=== PATIENT | male | born 1995 | race Caucasian/White ===

== ENCOUNTER 2025-02-17 22:04 | Emergency (ER) | payer OTHER, SELFPAY ==
[2025-02-17 22:11] VITALS: BP 143/89; PULSE 87; TEMP 37.1; O2SAT 96; BMI 39.1
--- NOTE | 2025-02-17 22:15 | ECG_ITS ---
[facility] Test Date: 2025-02-17 Pat Name: GOLDEN JIMÉNEZ Department: Room: - Gender: Male [employer]: : 1995 Requested By: [id number] Order Number: [id number] Reading MD: ELLIE MEDINA M.D. Measurements Intervals [place] Rate: 90 P: 41 WV: 144 QRS: 58 QRSD: 84 T: 30 QT: 350 QTc: 397 Interpretive Statements 1100 Sinus rhythm 8102 Low QRS voltage in chest leads Abnormal ECG No previous ECG available for comparison Electronically Signed On 02-18-2025 7:14:26 EDT by ELLIE MEDINA M.D.
--- NOTE | 2025-02-17 22:23 | ED.DIZZY1 ---
HPI - Dizziness General Chief Complaint: Dizziness Stated Complaint: Dizziness Time Seen by Provider: 02/17/25 22:23 Source: patient Mode of arrival: walk-in Limitations: no limitations History of Present Illness HPI Narrative: dizzy episode last week that resolved. States wisdom tooth pain at that time that has resolved. Tonight he was bending over to remove his boots and became dizzy falling forward striking his head on a mattress on the floor. No injury. Now presents to be seen. No headache. States if he turns his head there is a delay in movement of the room. No blurred vision or nausea. No focal weakness Related Data Home Medications ?Medication ?Instructions ?Recorded ?Confirmed No Known Home Medications 02/17/25 02/17/25 Allergies Allergy/AdvReac Type Severity Reaction Status Date / Time No Known Drug Allergies Allergy Verified 02/17/25 23:40 Review of Systems ROS Status of ROS 10 or more systems reviewed and unremarkable except as noted in history and below PFSH PFSH Social History Little interest or pleasure in doing things: not at all Feeling down, depressed, or hopeless: not at all Exam Constitutional Vital Signs, click to edit/add: Last Vital Signs Temp 98.8 F 02/17/25 22:11 Pulse 87 02/17/25 22:11 Resp 14 02/17/25 22:11 BP 143/89 H 02/17/25 22:11 Pulse Ox 96 02/17/25 22:11 O2 Del Method Room Air 02/17/25 22:11 Common normals: no apparent distress, average body habitus, oriented x3, no limitations, healthy appearing, alert and well nourished [facility] Other: fluid behind both TMs L>R faint erythema of left TM Eye Common normals: PERRL, EOMs intact bilaterally and conjunctivae normal Respiratory Common normals: normal respiratory effort, no retractions, no use of accessory muscles and clear to auscultation bilaterally Cardio Common normals: regular rate, regular rhythm, S1 normal heart sound and S2 normal heart sound Extremity Common normals: normal to inspection and full ROM Neuro Common normals: oriented x3, CN's II-XII intact bilaterally, moves all extremities and no focal motor deficits Psych Appearance: grossly normal Course Vital Signs Vital signs: Vital Signs Temperature 98.8 F 02/17/25 22:11 Pulse Rate 87 02/17/25 22:11 Respiratory Rate 14 02/17/25 22:11 Blood Pressure 143/89 H 02/17/25 22:11 Pulse Oximetry 96 02/17/25 22:11 Oxygen Delivery Method Room Air 02/17/25 22:11 Temperature 98.8 F 02/17/25 22:11 Pulse Rate 87 02/17/25 22:11 Respiratory Rate 14 02/17/25 22:11 Blood Pressure 143/89 H 02/17/25 22:11 Pulse Oximetry 96 02/17/25 22:11 Oxygen Delivery Method Room Air 02/17/25 22:11 MDM - Dizziness MDM Narrative Medical decision making narrative: patient presents with symptoms of vertigo. Bent over to take off his boots and became dizzy. No injury from fall. No headache or extremity weakness. Exam with findings of bilat otitis. given PO zithromax and antivert but vomited the medication up. Then given rocephin and ativan 0.5. also given solumedrol. Patient is now asymptomatic. advised of the diagnosis and treatment plan. Discharged home with a prescription for Augmentin, Antivert and medrol dosepak Lab Data Labs: Lab Results 02/17/25 Range/Units 22:38 WBC 9.8 (4.0-11.0) 10^3/uL RBC 5.10 (4.70-6.10) 10^6/uL Hgb 16.0 (14.0-18.0) g/dL Hct 44.8 (42.0-54.0) % MCV 87.8 (80.0-94.0) fL MCH 31.4 (25.9-34.0) pg MCHC 35.7 H (29.9-35.2) g/dL RDW 11.9 (11.0-15.0) % Plt Count 217 (150-450) 10^3/uL MPV 10.6 (9.5-13.5) fL Neut % (Auto) 63.3 (43.0-75.0) % Lymph % (Auto) 27.9 (20.5-60.0) % [place] % (Auto) 6.0 (1.7-12.0) % Eos % (Auto) 2.0 (0.9-7.0) % Baso % (Auto) 0.5 (0.2-2.0) % Neut # (Auto) 6.2 (1.4-6.5) 10^3/uL Lymph # (Auto) 2.7 (1.2-3.8) 10^3/uL [place] # (Auto) 0.6 (0.3-0.8) 10^3/uL Eos # (Auto) 0.2 (0.0-0.7) 10^3/uL Baso # (Auto) 0.1 (0.0-0.1) 10^3/uL Abs Immat Gran (auto) 0.03 (0.00-0.03) 10^3/uL Imm/Tot Granulo (auto) 0.3 (0.0-0.5) % Sodium 139 (136-145) mmol/L Potassium 3.6 (3.5-5.1) mmol/L Chloride 102 (98-107) mmol/L Carbon Dioxide 27.5 (21.0-32.0) mmol/L Anion Gap 13.1 BUN 13.0 (7.0-18.0) mg/dL Creatinine 1.13 (0.70-1.30) mg/dL Est GFR ( Amer) >60 (>=60 mL/min/1.73m^2) Est GFR (Non-Af Amer) >60 (>=60 mL/min/1.73m^2) BUN/Creatinine Ratio 11.5 Glucose 183 H (74-106) mg/dL Calcium 8.5 (8.5-10.1) mg/dL Discharge Plan Discharge Chief Complaint: Dizziness Clinical Impression: Benign paroxysmal positional vertigo, Otitis media Patient Disposition: Home, Self-Care Prescriptions / Home Meds: No Action No Known Home Medications Print Language: Burmese Instructions: Ear Infection (ED), Benign Paroxysmal Positional Vertigo (ED) Additional Instructions: drink plenty of fluids and follow up with your doctor this week Referrals: CARTER LOPEZ [Primary Care Provider] - 1 week
[2025-02-17] MEDS: METHYLPREDNISOLONE SOD SUCC PF 125 MG/2 ML VIAL IVP (22:45)
[2025-02-17 22:46] LABS: Basophils Absolute Auto 0.1 10^3/uL (0.0-0.1); Basophils Percent Auto 0.5 % (0.2-2.0); Eosinophils Absolute Auto 0.2 10^3/uL (0.0-0.7); Hematocrit 44.8 % (42.0-54.0); Immature Granulocytes Abs Auto 0.03 10^3/uL (0.00-0.03); Immature Granulocytes Pct Auto 0.3 % (0.0-0.5); Lymphocytes Absolute Auto 2.7 10^3/uL (1.2-3.8); Lymphocytes Percent Auto 27.9 % (20.5-60.0); Mean Corpuscular HGB Conc 35.7 g/dL (29.9-35.2); Mean Corpuscular Hemoglobin 31.4 pg (25.9-34.0); Mean Corpuscular Volume 87.8 fL (80.0-94.0); Mean Platelet Volume 10.6 fL (9.5-13.5); Monocytes Absolute Auto 0.6 10^3/uL (0.3-0.8); Neutrophils Absolute Auto 6.2 10^3/uL (1.4-6.5); Neutrophils Percent Auto 63.3 % (43.0-75.0); Platelet Count 217 10^3/uL (150-450); Red Cell Distribution Width 11.9 % (11.0-15.0); White Blood Count 9.8 10^3/uL (4.0-11.0)
[2025-02-17] MEDS: AZITHROMYCIN 250 MG TABLET 500 MG PO (22:46)
[2025-02-17] MEDS: MECLIZINE HCL 12.5 MG TABLET 25 MG PO (22:46)
[2025-02-17 22:56] LABS: Anion Gap 13.1; BUN Creatinine Ratio 11.5; Calcium 8.5 mg/dL (8.5-10.1); Carbon Dioxide 27.5 mmol/L (21.0-32.0); Chloride 102 mmol/L (98-107); Estimated GFR (African America >60 (>=60 mL/min/1.73m^2); Estimated GFR (Non-African Ame >60 (>=60 mL/min/1.73m^2); Glucose 183 mg/dL (74-106); Potassium 3.6 mmol/L (3.5-5.1); Sodium 139 mmol/L (136-145)
[2025-02-17] MEDS: CEFTRIAXONE 1,000 MG in 0.9 % SODIUM CHLORIDE 50 ML 100 MG IV (23:10)
[2025-02-17] MEDS: LORAZEPAM 2 MG/ML VIAL 0.5 MG IV (23:11)
[2025-02-17] MEDS: ONDANSETRON PF 4 MG/2 ML VIAL IV (23:11)
--- NOTE | 2025-02-17 23:33 | PC.NURSE ---
Pt denies dizziness and nausea. States that he feels much better.
[2025-02-17 23:59] VITALS: BP 140/72; PULSE 80; O2SAT 98
== END 2025-02-18 00:02 | disposition home or self-care (01) ==
PROVIDERS: Emergency Provider Internal Medicine; PCP Internal Medicine
DX: H81.10 Benign paroxysmal vertigo, unspecified ear (principal); H66.93 Otitis media, unspecified, bilateral
CPT/HCPCS: 36415; 80048; 85025; 93005; 96365; 96375; 99284; J0696; J2060; J2405; J2919